=== PATIENT | male | born 1980 | race Two or more races ===

== ENCOUNTER 2025-03-03 17:40 | Emergency (ER) | payer SELFPAY ==
[~2025-03-03] VITALS: Ht 172.7 cm; Wt 70.0 kg
[2025-03-03 17:52] VITALS: TEMP 38.1; O2SAT 99
[2025-03-03] MEDS: IBUPROFEN 600MG TABLET PO ONE (18:11)
[2025-03-03] MEDS: ACETAMINOPHEN 325MG TABLET PO ONE (18:11)
[2025-03-03 18:37] LABS: BASOPHILS % 0.5 % (0.0-2.0); EOSINOPHILS % 0.1 % (0.0-5.0); HEMATOCRIT. 48.4 % (42.0-52.0); HEMOGLOBIN. 16.3 g/dL (14.0-18.0); LYMPHOCYTES % 8.8 % (20.0-50.0); MEAN PLATELET VOLUME 11.3 fl (7.4-10.4); MONOCYTES % 5.8 % (2.0-8.0); NEUTROPHILS % 84.8 % (40.0-76.0); PLATELET 86 x1000/uL (130-400); RED BLOOD CELL COUNT 5.45 mill/uL (4.7-6.1); RED CELL DISTRIBUTION WIDTH 13.6 % (11.6-14.6)
[2025-03-03 18:51] LABS: CREATININE 1.1 mg/dL (0.6-1.3)
[2025-03-03 18:52] LABS: PROTEIN TOTAL 7.7 g/dL (6.0-8.3); UREA NITROGEN BLOOD 7 mg/dL (9-23)
[2025-03-03 18:53] LABS: ASPARTATE AMINOTRANSFERASE 72 IU/L (<34); TROPONIN I HIGH SENSITIVITY < 4 ng/L (3.0-53)
[2025-03-03 18:54] LABS: BILIRUBIN DIRECT 0.4 mg/dL (<=3.0); BILIRUBIN TOTAL 1.5 mg/dL (0.1-1.0)
[2025-03-03] MEDS: SODIUM CHLORIDE 0.9% 1,000 ML IV ONE (19:35)
[2025-03-03 20:31] LABS: TROPONIN I HIGH SENSITIVITY < 4 ng/L (3.0-53)
[2025-03-03] MEDS: IOHEXOL-350 100 ML BOTTLE ONE (21:22)
[2025-03-03 21:24] LABS: CLARITY URINE CLEAR (CLEAR); COLOR URINE YELLOW (YELLOW); GLUCOSE URINE NEGATIVE (NEGATIVE); KETONES URINE NEGATIVE (NEGATIVE); LEUKOCYTE ESTERASE URINE 2+ (NEGATIVE); NITRITE URINE POSITIVE (NEGATIVE); OCCULT BLOOD URINE TRACE (NEGATIVE); PH URINE 7.0 (4.5-8.0); PROTEIN URINE TRACE (NEGATIVE); SPECIFIC GRAVITY URINE 1.033 (1.005-1.030); UROBILINOGEN URINE 0.2 E.U./dL (0.2-1.0)
[2025-03-03] MEDS ORDERED: CIPR-494 MT (21:32)
[2025-03-03 21:42] LABS: BACTERIA URINE 1+; RBC URINE 0-2 /hpf (0-2); SQUAMOUS EPITHELIAL CELL URINE 1+ /lpf (RARE/1+)
[2025-03-03] MEDS: CEFTRIAXONE 1GM/50ML 50 ML IV ONE (21:44)
[2025-03-03 22:14] VITALS: BP 139/88; PULSE 77; RESP 19; O2SAT 100
== END 2025-03-03 22:15 | disposition home or self-care (01) ==
LOC: ER 17:40 → CMPBEDREQ 03-04 08:26
DX: N12 Tubulo-interstitial nephritis, not specified as acute or chronic (principal); R06.02 Shortness of breath; Z79.899 Other long term (current) drug therapy
CPT/HCPCS: 99291; 96365; 71275; 96361; 71046; 80076; 80048; 81003; 83880; 83690; 83735; 85025; 85379; 84484; 36415; 93005; Q9967; J0696; J7030